=== PATIENT | male | born 1995 | race Caucasian/White ===

== ENCOUNTER 2017-02-18 18:50 | Emergency (ER) | payer OTHER ==
[~2017-02-18] VITALS: Ht 180.3 cm; Wt 107.7 kg
[2017-02-18 21:12] VITALS: BP 118/90
== END 2017-02-18 21:12 | disposition home or self-care (01) ==
LOC: RME 18:50 → EME 18:50 → RME 21:12
DX: R11.2 Nausea with vomiting, unspecified (principal); R19.7 Diarrhea, unspecified; F32.9 Major depressive disorder, single episode, unspecified; F41.9 Anxiety disorder, unspecified; Z87.891 Personal history of nicotine dependence
CPT/HCPCS: 99281; 99283

== ENCOUNTER 2017-03-12 00:23 | Emergency (ER) | payer OTHER ==
[~2017-03-12] VITALS: Ht 182.9 cm; Wt 112.2 kg
[2017-03-12 00:24] VITALS: BP 143/98
[2017-03-12] MEDS ORDERED: TYLENOL WITH C1 EACH PO (01:53)
[2017-03-12] MEDS ORDERED: PEN-VEE K,VEET500 MG PO (01:53)
== END 2017-03-12 02:06 | disposition home or self-care (01) ==
LOC: EXP 00:23 → EME 00:23 → EXP 02:06
PROC: 3E0T3BZ Introduction of Anesthetic Agent into Peripheral Nerves and Plexi, Percutaneous Approach (ICD-10-PCS; principal; 2017-03-12)
DX: K08.89 Other specified disorders of teeth and supporting structures (principal); K03.81 Cracked tooth
CPT/HCPCS: 99281; 99284; S0020